=== PATIENT | male | born 1970 | race Caucasian/White ===

== ENCOUNTER → 2018-04-17 | Outpatient (CLI) | payer OTHER | LOC: COL.RAD 12:13 | DX: R07.9 Chest pain, unspecified (principal); R79.1 Abnormal coagulation profile; R00.0 Tachycardia, unspecified | CPT/HCPCS: A9539; A9540 ==

== ENCOUNTER → 2021-10-30 | Outpatient (CLI) | payer BC ==
[2021-10-30] VITALS (16 sets, daily range): BP systolic 115–139; BP diastolic 72–92; PULSE 76–93; TEMP 98.4
[~2021-10-30] MED LIST: ASPIRIN E.C. 8181 MG PO; MASON NATURAL1200 MG PO; MOTRIN 600600 MG/TAB PO; PAXIL 10MG10 MG PO; PRILOSEC 20MG20 MG PO; ZESTRIL40 MG PO
[2021-10-30 11:03] LABS: INR 1.1 (0.8-3.0); PROTHROMBIN TIME 12.4 SECONDS (9.7-12.8)
== END ==
LOC: COL.RAD 10:00
PROVIDERS: Internal Medicine Gastroenterology
DX: Z12.11 Encounter for screening for malignant neoplasm of colon (principal); K76.0 Fatty (change of) liver, not elsewhere classified; R74.8 Abnormal levels of other serum enzymes; R79.89 Other specified abnormal findings of blood chemistry
CPT/HCPCS: J3010